=== PATIENT | female | born 1955 | race Caucasian/White ===

== ENCOUNTER → 2017-02-26 | Outpatient (CLI) | payer OTHER ==
[~2017-02-26] MED LIST: MELO15TA4 PO; RANI150T PO
[2017-02-26 11:03] LABS: MEAN CORPUSCULAR HEMOGLOBIN 32.4 pg (27.0-33.0); MEAN CORPUSCULAR HGB CONC 34.6 g/dl (32.0-36.5); MEAN CORPUSCULAR VOLUME 93.6 fl (80.0-96.0); RED CELL DISTRIBUTION WIDTH 12.5 % (11.5-14.5); WHITE BLOOD COUNT 7.5 K/mm3 (4.0-10.0)
[2017-02-26 11:09] LABS: INR 0.89
[2017-02-26 11:17] LABS: ALBUMIN 4.2 GM/DL (3.2-5.2); ALKALINE PHOSPHATASE 61 U/L (45-117); ALT/SGPT 23 U/L (12-78); ANION GAP 6 MEQ/L (8-16); AST/SGOT 14 U/L (15-37); BILIRUBIN,TOTAL 0.7 MG/DL (0.2-1.0); BLOOD UREA NITROGEN 14 MG/DL (7-18); CALCIUM LEVEL 9.6 MG/DL (8.8-10.2); CARBON DIOXIDE LEVEL 28 MEQ/L (21-32); CHLORIDE LEVEL 101 MEQ/L (98-107); CREATININE FOR GFR 0.66 MG/DL (0.55-1.02); GLOMERULAR FILTRATION RATE > 60.0 (>45); GLUCOSE, FASTING 91 MG/DL (80-110); POTASSIUM SERUM 4.3 MEQ/L (3.5-5.1); SODIUM LEVEL 135 MEQ/L (136-145); TOTAL PROTEIN 7.2 GM/DL (6.4-8.2)
--- NOTE | 2017-02-26 17:08 | ECGEPIP ---
Stationary ECG Study [facility] Test Date: 2017-02-26 Pat Name: CHRISTINA IRWIN Department: Room: - Gender: F [employer] Inspector: DURAN : 1955 Requested By: Jace García Order Number: [id number] Reading MD: Devon Umaña Measurements Intervals [place] Rate: 75 P: 65 [place]: 138 QRS: 71 QRSD: 85 T: 54 QT: 361 QTc: 405 Interpretive Statements Normal sinus rhythm Normal EKG Comparison tracing not on file Electronically Signed On 02-26-2017 17:08:36 EDT by Devon Umaña
--- NOTE | 2017-02-27 01:59 | REP ---
Clinical: Chest pain. Arthritis. Technique: PA and lateral. Comparison: None. Findings: Mediastinum and cardiac silhouette are normal. Chronic-appearing interstitial markings are suggested although superimposed acute process cannot be excluded as no prior examinations are available for comparison. A focal consolidation, effusion, or pneumothorax. Skeletal structures intact. Impression: Chronic-appearing changes. Cannot exclude superimposed acute process. No prior examination is available for comparison. Consider chest CT for further investigation if necessary. Signed by Balaji Barrera MD 02/27/2017 01:50 A
== END ==
LOC: M ADMPAT 09:16
PROVIDERS: ATTEND Orthopaedic Surgery
DX: Z01.818 Encounter for other preprocedural examination (principal); M16.11 Unilateral primary osteoarthritis, right hip

== ENCOUNTER → 2017-03-09 | Outpatient (REF) | payer OTHER ==
[~2017-03-09] MED LIST changes: +ACET500T37 PO
== END ==
LOC: M LABDRAW1 11:51
PROVIDERS: ATTEND Physician Assistant
DX: M16.11 Unilateral primary osteoarthritis, right hip (principal)

== ENCOUNTER 2017-03-12 05:39 | Inpatient (IN) | payer OTHER ==
[2017-02-26 09:57] VITALS: BP 112/72
--- NOTE | 2017-03-09 12:47 | HPE ---
DATE OF ADMISSION: 03/09/2017 CHIEF COMPLAINT: Right hip pain. HISTORY OF PRESENT ILLNESS This is a pleasant, 62-year-old female with progressively worsening right hip pain and stiffness. She has failed to improve with conservative treatment. She has elected for surgery for her continued symptoms. She has pain with weightbearing activities and her activities of daily living. X-rays of her hip are notable for advanced osteoarthritis of the right hip joint. She has consented for a right total hip arthroplasty by Dr. Jace García. Medical optimization was performed by Dr. Angela. ALLERGIES: LATEX. CURRENT MEDICATIONS: - meloxicam and ranitidine as needed PAST SURGICAL HISTORY: Hernia repair at age 14. SOCIAL HISTORY: This patient is retired. She quit smoking 01/31/2017 and she does not drink alcohol. FAMILY HISTORY: Is noncontributory. REVIEW OF SYSTEMS: This patient denies chest pain, heart palpitations, cough, wheezing, difficulty breathing and shortness of breath. She denies abdominal pain, nausea, vomiting, diarrhea or constipation. She denies recent upper respiratory infection or urinary tract infection symptoms. She does complain of persistent pain in her right hip and pain with weightbearing activities in the right hip. PHYSICAL EXAMINATION: General: She is well-nourished, well-developed in no acute distress, adult, alert female patient. She walks with a moderate limp favoring her right lower extremity. She is not using assistive devices. Vital signs: She is 5 feet tall, weighs 122 pounds with a temperature of 97 degrees, blood pressure 138/81, pulse of 77, respirations of 16. Neck was supple without adenopathy or jugular venous distension. There were no carotid bruits appreciated upon auscultation. Lungs were clear to auscultation without rales or wheeze throughout. Heart: Regular rate and rhythm. Abdomen: Bowel sounds were present. Extremities: Examination of the hip revealed intact skin without erythema, edema or ecchymosis. She had pain and irritability with decreased range of motion with internal and external rotation on exam. The limb is neurovascularly intact. LABORATORY DATA: EKG showed sinus rhythm at 275 beats per minute. Chest x-ray showed chronic appearing changes but could not exclude superimposed acute process and recommended CT for further investigation due to interstitial markings. It should be noted that a CT scan has been scheduled through her primary. UA showed a contaminated specimen, so we are ordering another one today. That will be pending. Nasal and sinus culture showed normal casimiro. Prothrombin time was 12.1, INR 0.89. Glucose 91. BUN 14, creatinine 0.66. Sodium 135, potassium 4.3. CBC was within normal limits. Sedimentation rate was 15. IMPRESSION: Symptomatic osteoarthritis of the right hip joint. Interstitial changes on chest x-ray with CT recommended for followup. Her CT scan is scheduled through her primary. We are pending the results of her urinalysis (UA). I do not anticipate any problems with that and will proceed as planned for her right total hip arthroplasty on 03/12/[address] Jace García.
[~2017-03-12] VITALS: Ht 152.4 cm; Wt 55.3 kg
[2017-03-12] VITALS (7 sets, daily range): BP systolic 94–117; BP diastolic 54–70
[~2017-03-12 05:39] MED LIST changes: -ACET500T37 PO
[2017-03-12] MEDS ORDERED: LR 1,000 ML IV SCH ×2 (05:45→09:30)
[2017-03-12] MEDS ORDERED: ceFAZolin SOD 1 GM in D5W MINI-BAG PLUS 50 ML IV ONE (05:45)
[2017-03-12] MEDS ORDERED: LR 1,000 ML IV ONE (05:45)
[2017-03-12] MEDS ORDERED: LIDOCAINE 2% INJ 100 MG/5 ML SDV (FOR ANES.) As Ordered ONE (06:16)
[2017-03-12] MEDS ORDERED: PROPOFOL 200 MG/20 ML VIAL As Ordered ONE ×2 (06:16→08:11)
[2017-03-12] MEDS ORDERED: BUPIVACAINE HCL 0.25% 30 ML VIAL As Ordered ONE (06:27)
[2017-03-12] MEDS ORDERED: TRANEXAMIC ACID 100 MG/ML 10ML VIAL As Ordered ONE (06:29)
[2017-03-12] MEDS ORDERED: EPINEPHrine INJ 1 MG/ML 1ML AMP As Ordered ONE (06:29)
[2017-03-12] MEDS ORDERED: ceFAZolin 1GM INJ (J0690) As Ordered ONE (06:29)
[2017-03-12] MEDS ORDERED: ACET-683 PO (06:38)
[2017-03-12] MEDS ORDERED: MIDAZOLAM INJ 2 MG/2 ML VIAL (J2250) As Ordered ONE (08:01)
[2017-03-12] MEDS ORDERED: fentaNYL 100 MCG/2 ML INJECTION (J3010) As Ordered ONE (08:01)
[2017-03-12] MEDS ORDERED: ePHEDrine SULFATE 25 MG/5 ML(5MG/ML) SYRINGE As Ordered ONE (08:11)
[2017-03-12] MEDS ORDERED: MORPHINE 1MG/ML IN 0.9% NACL 100ML IV BAG As Ordered ONE (09:23)
[2017-03-12] MEDS ORDERED: ACETAMINOPHEN TAB 650MG DOSE (2X325MG) PO PRN (09:30)
[2017-03-12] MEDS ORDERED: HYDROmorphone HCL 1 MG/ML SYRINGE (J1170) IV PRN (09:30)
[2017-03-12] MEDS ORDERED: EPIDURAL/PCA KEYS XX PRN (09:30)
[2017-03-12] MEDS ORDERED: PERCOCET 5MG/325MG TAB PO PRN (09:30)
[2017-03-12] MEDS ORDERED: FLEET ENEMA PR PRN (09:30)
[2017-03-12] MEDS ORDERED: ONDANSETRON 4MG/2ML VIAL (J2405) IV PRN ×3 (09:30)
[2017-03-12] MEDS ORDERED: diphenhydrAMINE INJ 50MG/ML VIAL (J1200) IV PRN (09:30)
[2017-03-12] MEDS ORDERED: NALBUPHINE HCL 10 MG/ML AMP (J2300) IV PRN (09:30)
[2017-03-12] MEDS: LR 1,000 ML IV SCH (09:30)
[2017-03-12] MEDS ORDERED: NALOXONE INJ 0.4 MG/1 ML VIAL (J2310) IV PRN (09:30)
[2017-03-12] MEDS ORDERED: MORPHINE 1MG/ML IN 0.9% NACL 100ML IV BAG IV PRN (09:30)
[2017-03-12] MEDS: fentaNYL 100 MCG/2 ML INJECTION (J3010) IV PRN ×2 (10:00→10:10)
--- NOTE | 2017-03-12 16:14 | CR.PDOC ---
[facility] Consultation Consultation DATE OF CONSULTATION: REFERRING PROVIDER: Pepe Snell M.D. ATTENDING PHYSICIAN: Dr. García REASON FOR CONSULTATION/CHIEF COMPLAINT: . Medical comanagement HISTORY OF PRESENT ILLNESS: . 62-year-old female with no significant past medical history presented to [facility] for right hip replacement. She denies any acute complaints of fevers, chills, chest pain, shortness of breath, abdominal pain, palpitations, or any nausea/ vomiting/diarrhea. The hospitalist service has been consulted for medical comanagement. ALLERGIES: Please see below. HOME MEDICATIONS: Please see below. PAST MEDICAL HISTORY: None significant PAST SURGICAL HISTORY: Hernia repair at age 14 FAMILY HISTORY: Noncontributory SOCIAL HISTORY: Former tobacco user, denies alcohol or illicit drug use REVIEW OF SYSTEMS: 10 point review of systems negative unless otherwise specified in HPI. PHYSICAL EXAMINATION: VITAL SIGNS: Please see below. GENERAL APPEARANCE: . Awake, alert, in no acute distress HEENT: . Normocephalic, atraumatic RESPIRATORY: . Clear to auscultation bilaterally CARDIOVASCULAR: . Normal rate, normal rhythm ABDOMEN: . Soft, nontender, nondistended EXTREMITIES: . Right hip noted to be wrapped in surgical dressing, range of motion limited secondary to recent surgery, neurovascularly intact distally. LABORATORY DATA: Please see below. ASSESSMENT/PLAN: Status post right hip replacement DVT prophylaxis and pain management as per orthopedic surgery Indigestion Pepcid when necessary ordered Vital Signs/I&O Vital Signs Date Time Temp Pulse Resp B/P (MAP) Pulse Ox O2 Delivery O2 Flow Rate FiO2 03/12/17 11:20 Room Air 03/12/17 10:59 16 99 03/12/17 10:59 78 111/59 (76) 03/12/17 10:35 98.0 Allergies Coded Allergies: Latex (Verified Allergy, Intermediate, HIVES,SNEEZING, 02/26/17) Home Medications Scheduled PRN Meloxicam (Meloxicam) 15 Mg Tab, 15 MG PO DAILYPRN PRN for PAIN, (Reported) Ranitidine HCl (Ranitidine HCl) 150 Mg Tab, 1 TAB PO DAILYPRN PRN for BLOATING, (Reported) Miscellaneous Medications Acetaminophen (Acetaminophen Extra Stren) 500 Mg Tab, 500 MG PO, (Reported) PEPE SNELL MD Mar 12, 2017 16:14
[2017-03-12] MEDS ORDERED: FAMOTIDINE 20 MG TAB PO PRN (16:15)
[2017-03-12] MEDS ORDERED: WARFARIN SOD 5 MG TAB PO ONE (17:00)
--- NOTE | 2017-03-12 18:32 | RO ---
DATE OF PROCEDURE: 03/12/2017 PREOPERATIVE DIAGNOSIS: Right hip osteoarthritis. POSTOPERATIVE DIAGNOSIS: Right hip osteoarthritis. PROCEDURE: Right total hip arthroplasty using a [place] size three regular offset and +5 32 ball and a 50 acetabular liner. SURGEON: Dr. Jace García SHOT COAT TENDER: Tyrell Bonds ANESTHESIA: Spinal. ESTIMATED BLOOD LOSS: 200. COMPLICATIONS: None. INDICATIONS: This is a 62-year-old woman who has had gradual worsening right hip pain. She has failed conservative management and this was interfering with her life significantly. She has had a previous injection that helped her temporarily. She understood the nature of procedure of the risks of bleeding, infection, damage to nerves, vessels, persistent pain, wear, loosening, dislocation, leg length inequality, blood clots, medical problems, among others. PROCEDURE: The patient was taken to the operating room, placed in the left lateral decubitus position on the [place] positioner in the usual fashion. All areas were padded appropriately. The right hip was prepped and draped in the usual sterile fashion. Time-out was performed. I then created a longitudinal incision over the lateral aspect of the hip and sharply dissected down through subcutaneous tissue controlled hemostasis with cautery. I then incised the fascia maryann, identified the abductor and split about the anterior 40% of the abductor off of the anterior aspect the femur as we gradually externally rotated the femur and dislocated the hip without difficulty. I then used a canal initiating reamer followed by the canal finding reamer. The lateralizing reamer and then sequentially was able to ream up to the size 3 for the Spring House system. I then removed the head with the oscillating saw using a broach as a template. The leg was then taken back out of the bag and I prepared the acetabulum. Remove soft tissue from around the acetabulum and then took some of the soft tissue from deep in the acetabulum. I was then sequentially able to ream up to a size 49. Got good bleeding bone and good concentric reaming. Overall the acetabulum appeared excellent. I irrigated copiously then impacted in the size 50 cup in the appropriate anteversion horizontal tilt using a guide. This was well seated. I then impacted in the polyethylene liner 32 x 50, made sure this was well seated. We then directed our attention back to the femur. I used the kristel cutter followed by the brobelinda and broached up to a size 3 which seemed to fit very nicely. I used a calcar planer was smoothed off the neck and then did a trial reduction. The +5 standard seemed to be the best soft tissue tension and stability. Had excellent stability in extension external rotation and flexion internal rotation. A minimal shuck in full extension. I then removed the trial components and packed the actual size 3 standard stem down to the femur and excellent fit was noted. I dried the Abdullahi taper and impacted on the +5 32 ball. I made sure this was well seated. Irrigated again copiously. We irrigated multiple times prior to this including prior to stent placement. Reduced the hip and put the hip through range of motion. I was very pleased with the stability and soft tissue tension. She did not impinge. TXA solution was then placed. I then closed the deep layer with #1 Vicryl suture. The abductor with #1 Vicryl suture obtaining an excellent closure with a couple bites being placed through the bone. The fascia maryann was closed with interrupted #1 Vicryl suture in running Stratafix sutures in both directions with the veterinary assistant helping with this. I then closed subcu to subcu with #2-0 Vicryl after irrigation. The skin with marlen. Sterile dressing was applied and she was taken to recovery room in stable condition. There were no known complications. The plan be routine postop for an replacement. The veterinary assistant was instrumental in holding retractors and reducing and dislocating the hip and wound closure.
[2017-03-13] MEDS: LR 1,000 ML IV SCH (00:24)
[2017-03-13 02:00] VITALS: BP 115/72
[2017-03-13 06:00] VITALS: BP 110/62
[2017-03-13 06:28] LABS: MEAN CORPUSCULAR HEMOGLOBIN 32.6 pg (27.0-33.0); MEAN CORPUSCULAR HGB CONC 34.7 g/dl (32.0-36.5); MEAN CORPUSCULAR VOLUME 94.2 fl (80.0-96.0); RED CELL DISTRIBUTION WIDTH 12.5 % (11.5-14.5); WHITE BLOOD COUNT 10.9 K/mm3 (4.0-10.0)
[2017-03-13 06:31] LABS: INR 1.3
[2017-03-13] MEDS ORDERED: ONDANSETRON 4 MG TAB (S0181) PO PRN (06:45)
[2017-03-13] MEDS ORDERED: PERCOCET 5MG/325MG TAB PO PRN (06:45)
[2017-03-13 07:23] LABS: ANION GAP 9 MEQ/L (8-16); BLOOD UREA NITROGEN 10 MG/DL (7-18); CALCIUM LEVEL 8.5 MG/DL (8.8-10.2); CARBON DIOXIDE LEVEL 24 MEQ/L (21-32); CHLORIDE LEVEL 104 MEQ/L (98-107); CREATININE FOR GFR 0.66 MG/DL (0.55-1.02); GLOMERULAR FILTRATION RATE > 60.0 (>45); GLUCOSE, FASTING 136 MG/DL (80-110); SODIUM LEVEL 137 MEQ/L (136-145)
[2017-03-13] MEDS: MOM 30ML SUSPENSION UDC PO SCH (08:55)
[2017-03-13] MEDS: MIRALAX *UNIT DOSE* 17GM PACKET PO SCH (08:55)
[2017-03-13] MEDS: PERCOCET 5MG/325MG TAB PO PRN ×4 (08:56→20:57)
[2017-03-13] MEDS: SENOKOT S TAB PO SCH ×2 (09:00→20:56)
--- NOTE | 2017-03-13 09:10 | REP ---
Clinical: Status post arthroplasty. Technique: AP and cross-table lateral views. Findings: The patient is status post right hip replacement with normal positioning and appearance to the femoral and acetabular components. Overlying postsurgical changes appreciated. Impression: Satisfactory right hip replacement radiographs. Signed by Balaji Barrera MD 03/13/2017 09:02 A
[2017-03-13 14:00] VITALS: BP 100/58
--- NOTE | 2017-03-13 15:33 | IPNPDOC ---
Subjective Date Seen The patient was seen on 03/13/17. Subjective Chief Complaint/HPI The patient is a 62-year-old female admitted with a reason for visit of Arthritis Right Hip. General: Denies: Chills, Night Sweats Constitutional: Denies: Chills, Fever Eyes: Denies: Pain, Vision change ENT: Denies: Head Aches, Ear Pain Skin: Denies: Rash, Lesions Pulmonary: Denies: Dyspnea, Cough Cardiovascular: Denies: Chest Pain, Palpitations Gastrointestinal: Denies: Nausea, Vomiting Genitourinary: Denies: Dysuria, Frequency Hematologic: Denies: Bruising, Bleeding Excessively Objective Physical Examination General Exam: Positive: Alert, Cooperative ENT Exam: Positive: Atraumatic, Mucous membr. moist/pink Neck Exam: Negative: JVD Chest Exam: Positive: Clear to auscultation, Normal air movement Heart Exam: Positive: Rate Normal, Normal S1, Normal S2 Abdomen Exam: Positive: Soft, Negative: Tenderness Extremity Exam: Positive: Other (Right hip noted to be wrapped in surgical dressing, range of motion limited secondary to recent surgery, neurovascularly intact distally.) Assessment /Plan Plan/VTE VTE Prophylaxis Ordered?: Yes Plan Status post right hip replacement DVT prophylaxis and pain management as per orthopedic surgery Indigestion Pepcid when necessary ordered VS, I&O, 24H, Fishbone Vital Signs/I&O Vital Signs Date Time Temp Pulse Resp B/P (MAP) Pulse Ox O2 Delivery O2 Flow Rate FiO2 03/13/17 13:33 16 03/13/17 08:30 Room Air 03/13/17 08:30 92 03/13/17 06:00 98.5 91 110/62 (78) I&O- Last 24 Hours up to 6 AM 03/13/17 06:00 Intake Total 2980 ml Output Total 1750 ml Balance 1230 ml Laboratory Data 24H LABS Laboratory Tests 2 03/13/17 06:12: Prothrombin Time 16.3H, Prothromb Time International Ratio 1.30, Anion Gap 9, Glomerular Filtration Rate > 60.0, Blood Urea Nitrogen 10, Creatinine 0.66, Sodium Level 137, Potassium Level 4.0, Chloride Level 104, Carbon Dioxide Level 24, Calcium Level 8.5L CBC/BMP Laboratory Tests 03/13/17 06:12 Red Blood Count 3.48 L, Mean Corpuscular Volume 94.2, Mean Corpuscular Hemoglobin 32.6, Mean Corpuscular Hemoglobin Concent 34.7, Red Cell Distribution Width 12.5, Calcium Level 8.5 L CORRINA SNELL MD Mar 13, 2017 15:33
[2017-03-13] MEDS ORDERED: WARFARIN SOD 5 MG TAB PO ONE (17:00)
[2017-03-13 22:00] VITALS: BP 119/59
[2017-03-14] MEDS: PERCOCET 5MG/325MG TAB PO PRN ×5 (04:52→20:01)
[2017-03-14 05:45] LABS: MEAN CORPUSCULAR HEMOGLOBIN 32.3 pg (27.0-33.0); MEAN CORPUSCULAR HGB CONC 34.5 g/dl (32.0-36.5); MEAN CORPUSCULAR VOLUME 93.5 fl (80.0-96.0); RED CELL DISTRIBUTION WIDTH 12.3 % (11.5-14.5); WHITE BLOOD COUNT 11.4 K/mm3 (4.0-10.0)
[2017-03-14 06:00] VITALS: BP 125/56
[2017-03-14 06:00] LABS: INR 1.94
[2017-03-14 09:08] VITALS: BP 109/58
[2017-03-14] MEDS: MIRALAX *UNIT DOSE* 17GM PACKET PO SCH (09:23)
[2017-03-14] MEDS: SENOKOT S TAB PO SCH ×2 (09:23→20:00)
[2017-03-14] MEDS: MOM 30ML SUSPENSION UDC PO SCH (09:23)
--- NOTE | 2017-03-14 11:24 | IPNPDOC ---
Subjective Date Seen The patient was seen on 03/14/17. Subjective Chief Complaint/HPI The patient is a 62-year-old female admitted with a reason for visit of Arthritis Right Hip. General: Denies: Chills, Night Sweats Constitutional: Denies: Chills, Fever Eyes: Denies: Pain, Vision change ENT: Denies: Head Aches, Ear Pain Skin: Denies: Rash, Lesions Pulmonary: Denies: Dyspnea, Cough Cardiovascular: Denies: Chest Pain, Palpitations Gastrointestinal: Denies: Nausea, Vomiting Genitourinary: Denies: Dysuria, Frequency Hematologic: Denies: Bruising, Bleeding Excessively Objective Physical Examination General Exam: Positive: Alert, Cooperative, No Acute Distress ENT Exam: Positive: Atraumatic, Mucous membr. moist/pink Neck Exam: Negative: JVD Chest Exam: Positive: Clear to auscultation, Normal air movement Heart Exam: Positive: Rate Normal, Normal S1, Normal S2 Abdomen Exam: Positive: Soft, Negative: Tenderness Extremity Exam: Positive: Other (Right hip noted to be wrapped in surgical dressing, range of motion limited secondary to recent surgery, neurovascularly intact distally.) Assessment /Plan Plan/VTE VTE Prophylaxis Ordered?: Yes Plan Status post right hip replacement DVT prophylaxis and pain management as per orthopedic surgery Indigestion Pepcid when necessary ordered VS, I&O, 24H, Fishbone Vital Signs/I&O Vital Signs Date Time Temp Pulse Resp B/P (MAP) Pulse Ox O2 Delivery O2 Flow Rate FiO2 03/14/17 09:20 18 03/14/17 09:08 98.4 94 109/58 (75) 96 Room Air I&O- Last 24 Hours up to 6 AM 03/14/17 06:00 Intake Total 1550 ml Output Total 1000 ml Balance 550 ml Laboratory Data 24H LABS Laboratory Tests 2 03/14/17 05:31: Prothrombin Time 22.8H, Prothromb Time International Ratio 1.94 CBC/BMP Laboratory Tests 03/14/17 05:31 Red Blood Count 3.15 L, Mean Corpuscular Volume 93.5, Mean Corpuscular Hemoglobin 32.3, Mean Corpuscular Hemoglobin Concent 34.5, Red Cell Distribution Width 12.3 CORRINA SNELL MD Mar 14, 2017 11:24
[2017-03-14] MEDS ORDERED: WARFARIN SOD 2.5 MG TAB PO ONE (17:00)
[2017-03-14 22:00] VITALS: BP 115/59
[2017-03-15] MEDS: PERCOCET 5MG/325MG TAB PO PRN ×4 (00:10→13:10)
[2017-03-15 06:00] VITALS: BP 104/56
[2017-03-15] MEDS: MOM 30ML SUSPENSION UDC PO SCH (06:04)
[2017-03-15] MEDS: MIRALAX *UNIT DOSE* 17GM PACKET PO SCH (06:05)
[2017-03-15 06:48] LABS: INR 1.9
[2017-03-15] MEDS ORDERED: PERC5TAB12 PO (08:31)
[2017-03-15] MEDS ORDERED: MORP15TASA PO (08:31)
[2017-03-15] MEDS ORDERED: COUM2.5T17 PO (08:31)
[2017-03-15] MEDS: SENOKOT S TAB PO SCH (08:53)
--- NOTE | 2017-03-15 11:41 | IPNPDOC ---
Subjective Date Seen The patient was seen on 03/15/17. Subjective Chief Complaint/HPI The patient is a 62-year-old female admitted with a reason for visit of Arthritis Right Hip. General: Denies: Chills, Night Sweats Constitutional: Denies: Chills, Fever Eyes: Denies: Pain, Vision change ENT: Denies: Head Aches, Ear Pain Skin: Denies: Rash, Lesions Pulmonary: Denies: Cough Cardiovascular: Denies: Chest Pain, Palpitations Gastrointestinal: Denies: Nausea, Vomiting Genitourinary: Denies: Dysuria, Frequency Hematologic: Denies: Bruising, Bleeding Excessively Objective Physical Examination General Exam: Positive: Alert, Cooperative, No Acute Distress ENT Exam: Positive: Atraumatic, Mucous membr. moist/pink Neck Exam: Negative: JVD Chest Exam: Positive: Clear to auscultation, Normal air movement Heart Exam: Positive: Rate Normal, Normal S1, Normal S2 Abdomen Exam: Positive: Soft, Negative: Tenderness Extremity Exam: Positive: Other (Right hip noted to be wrapped in surgical dressing, range of motion limited secondary to recent surgery, neurovascularly intact distally.) Assessment /Plan Plan/VTE VTE Prophylaxis Ordered?: Yes Plan Status post right hip replacement DVT prophylaxis and pain management as per orthopedic surgery Indigestion Pepcid when necessary ordered VS, I&O, 24H, Fishbone Vital Signs/I&O Vital Signs Date Time Temp Pulse Resp B/P (MAP) Pulse Ox O2 Delivery O2 Flow Rate FiO2 03/15/17 09:25 18 03/15/17 06:00 98.2 89 104/56 (72) 95 Room Air I&O- Last 24 Hours up to 6 AM 03/15/17 06:00 Intake Total 1560 ml Balance 1560 ml Laboratory Data 24H LABS Laboratory Tests 2 03/15/17 05:58: Prothrombin Time 22.4H, Prothromb Time International Ratio 1.90 CORRINA SNELL MD Mar 15, 2017 11:41
--- NOTE | 2017-03-18 09:20 | DSES ---
DATE OF ADMISSION: 03/12/2017 DATE OF DISCHARGE: 03/15/2017 ADMISSION DIAGNOSIS: Right hip osteoarthritis. DISCHARGE DIAGNOSIS: Status post right total hip arthroplasty. HISTORY OF PRESENT ILLNESS: This is a pleasant female with continuing symptomatic right hip osteoarthritis. She consented for a right total hip arthroplasty per Dr. Jace García. Medical optimization per Dr. Angela. X-rays were consistent with advanced osteoarthritis. OPERATION PERFORMED: Right total hip arthroplasty. HOSPITAL COURSE: The patient underwent a right total hip arthroplasty uneventfully under spinal anesthesia and was returned to recovery comfortable. Our hospital team decided to discharge the patient on 03/15/2017 with the following instructions. Weightbearing as tolerated right lower extremity with a walker. Coumadin and thromboembolic deterrent stockings (TEDS) times 30 days. Diet is regular. Percocet as needed for pain. Optifoam dressing change in seven days' time. Followup in 12-14 days for wound check and staple removal. The patient is encouraged to contact our office sooner with increased pain, numbness , tingling down lower extremity, redness, drainage, bleeding, fever greater than 101 or further concerns. JEROME
== END 2017-03-15 13:12 | disposition home health service (06) | DRG 301 ==
LOC: M OR 05:39 → M MS5PR 11:15
PROVIDERS: ADMIT Orthopaedic Surgery; ATTEND Orthopaedic Surgery
PROC: 0SR902Z Replacement of Right Hip Joint with Metal on Polyethylene Synthetic Substitute, Open Approach (ICD-10-PCS; principal; 2017-03-12 07:30)
DX: M16.11 Unilateral primary osteoarthritis, right hip (principal); Z91.040 Latex allergy status; Z87.891 Personal history of nicotine dependence

== ENCOUNTER → 2019-02-10 | Outpatient (REF) | payer OTHER ==
[~2019-02-10] MED LIST changes: +ACET-683 PO; +COUM2.5T17 PO; +MELO15TA28 PO; -MELO15TA4 PO; +MORP15TASA PO; +PERC5TAB12 PO
== END ==
LOC: M LAB LCGH 15:05
PROVIDERS: ATTEND Surgery
DX: Z12.11 Encounter for screening for malignant neoplasm of colon (principal); Z80.0 Family history of malignant neoplasm of digestive organs; D12.6 Benign neoplasm of colon, unspecified